=== PATIENT | female | born 2005 | race Caucasian/White ===

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

== ENCOUNTER → 2023-04-17 | Outpatient (CLI) | payer OTHER ==
[2023-04-17 18:01] LABS: HEMATOCRIT 39.6 % (37.0-47.0); MEAN CELL VOLUME 86.8 fl (81.0-99.0); MEAN CORPUSCULAR HGB 29.6 pg (27.0-31.0); MEAN CORPUSCULAR HGB CONC 34.1 g/dl (33.0-37.0); MEAN PLATELET VOLUME 10.9 fl (9.6-12.3); RED BLOOD COUNT 4.56 10*6/uL (4.10-5.10); RED CELL DISTRI WIDTH 13.2 % (0-14.5); WHITE BLOOD COUNT 6.9 10*3/uL (4.8-10.8)
[2023-04-17 18:30] LABS: ALKALINE PHOSPHATASE 69 U/L (46-116); BUN 8 mg/dl (9-23); CHLORIDE 102 mmol/L (98-107); FREE T4 1.09 ng/dl (0.89-1.76); POTASSIUM 3.6 mmol/L (3.4-5.1); SGPT/ALT < 7 U/L (10-49); TOTAL PROTEIN 7.6 gm/dL (6.0-8.0)
== END | disposition home or self-care (01) ==
LOC: LAB 17:43
PROVIDERS: ATTEND Family Medicine
DX: M79.10 Myalgia, unspecified site (principal); M25.50 Pain in unspecified joint; R53.83 Other fatigue

== ENCOUNTER → 2023-11-23 | Outpatient (CLI) | payer OTHER ==
[2023-11-23 12:56] LABS: BASO % 0.3 % (0.0-1.0); BILIRUBIN Negative (Negative); BLOOD Negative (Negative); CLARITY Clear (Clear); COLOR Yellow (Yellow); EOS % 0.1 % (1.0-4.0); GLUCOSE Negative (Negative); HEMATOCRIT 42.5 % (37.0-47.0); KETONE Trace (Negative); LEUKO ESTERASE Negative (Negative); LYMPH % 26.5 % (27.0-41.0); MEAN CELL VOLUME 87.8 fl (81.0-99.0); MEAN CORPUSCULAR HGB 29.3 pg (27.0-31.0); MEAN CORPUSCULAR HGB CONC 33.4 g/dl (33.0-37.0); MEAN PLATELET VOLUME 10.8 fl (9.6-12.3); MONO # 0.5 10*3/uL (0.1-1.0); MONO % 6.6 % (3.0-9.0); NEUT # 5.1 10*3/uL (2.3-7.9); NEUT % 66.4 % (47.0-73.0); NITRITE Negative (Negative); PLATELET COUNT AUTOMATED 316 10*3/uL (130-400); RED BLOOD COUNT 4.84 10*6/uL (4.10-5.10); RED CELL DISTRI WIDTH 12.9 % (0-14.5); RETICULOCYTE % 0.72 % (0.50-2.50); UROBILINOGEN 0.2 E.U./dl (0.0-1.0); WHITE BLOOD COUNT 7.7 10*3/uL (4.8-10.8)
[2023-11-23 13:11] LABS: BACTERIA 2+
[2023-11-23 13:40] LABS: VITAMIN D, 25-HYDROXY 31.1 ng/mL (30-100)
[2023-11-23 13:41] LABS: ALKALINE PHOSPHATASE 54 U/L (46-116); BUN 7 mg/dl (9-23); CHLORIDE 107 mmol/L (98-107); CHOLESTEROL 136 mg/dL (<200); GAMMA GLUTAMYL TRANSPEPTIDASE 12 U/L (0-73); LDL CHOLESTEROL 68 mg/dL (9-159); POTASSIUM 3.3 mmol/L (3.4-5.1); T3 UPTAKE 34.3 % (22.4-36.7); THYROXINE (T4) TOTAL 8.9 ug/dl (4.5-10.9); TOTAL PROTEIN 7.8 gm/dL (6.0-8.0); TRIGLYCERIDES 67 mg/dl (<150); URIC ACID 4.2 mg/dL (3.1-7.8)
[2023-11-23 13:42] LABS: BETA-HCG, QUANT < 3.0 mIU/mL (3-10); SGPT/ALT < 7 U/L (5-49)
[2023-11-23 13:52] LABS: TESTOSTERONE, TOTAL 31 ng/dL (14-73)
[2023-11-24 07:06] LABS: SEX HORMONE BINDING GLOBULIN 58.6 nmol/L (24.6-122.0)
[2023-11-24 11:08] LABS: ANTI-DSDNA ANTIBODIES <1 IU/mL (0-9)
[2023-11-26 06:10] LABS: HUMAN GROWTH HORMONE 0.1 ng/mL (0.0-10.0)
[2023-11-27 12:08] LABS: TESTOSTERONE FREE, (DIRECT) 1.6 pg/mL (0.0-4.2)
[2023-11-28 01:06] LABS: DEHYDROEPIANDROSTERONE 770 ng/dL (31-701)
== END | disposition home or self-care (01) ==
LOC: LAB 11:50
PROVIDERS: ATTEND Family Medicine
DX: E55.9 Vitamin D deficiency, unspecified (principal); N92.6 Irregular menstruation, unspecified; D64.9 Anemia, unspecified; R79.89 Other specified abnormal findings of blood chemistry; R53.83 Other fatigue; R74.8 Abnormal levels of other serum enzymes; M25.50 Pain in unspecified joint

== ENCOUNTER 2023-11-25 17:10 | Emergency (ER) | payer OTHER ==
[~2023-11-25] VITALS: Ht 154.9 cm; Wt 40.8 kg
[2023-11-25] MEDS ORDERED: hydrOXYzine pamoate 25 MG CAP PO ONE (19:25)
== END 2023-11-25 19:22 | disposition left against medical advice (07) ==
LOC: ED 17:10
DX: F41.9 Anxiety disorder, unspecified (principal); R07.89 Other chest pain; M25.512 Pain in left shoulder; Z53.21 Procedure and treatment not carried out due to patient leaving prior to being seen by health care provider

== ENCOUNTER 2025-02-23 18:04 | Emergency (ER) | payer OTHER ==
[~2025-02-23] VITALS: Ht 154.9 cm; Wt 63.5 kg
[2025-02-23] MEDS ORDERED: IBUPROFEN 600 MG TAB PO ONE (18:25)
== END 2025-02-23 20:12 | disposition home or self-care (01) ==
LOC: ED 18:04
DX: S90.32XA Contusion of left foot, initial encounter (principal); Z88.8 Allergy status to other drugs, medicaments and biological substances; W22.8XXA Striking against or struck by other objects, initial encounter; Y93.89 Activity, other specified; Y92.89 Other specified places as the place of occurrence of the external cause; Y99.8 Other external cause status